=== PATIENT | female | born 1995 | race Two or more races ===

== ENCOUNTER 2024-07-11 10:20 | Emergency (ER) | payer OTHER ==
[~2024-07-11] VITALS: Ht 160 cm; Wt 61.7 kg
[~2024-07-11 10:20] MED LIST: DOLOGEN CAPLET1 TAB PO; SEPTRA DS TABLE1 TAB PO
[2024-07-11] MEDS ORDERED: 0.9 % SODIUM CHLORIDE 1,000 ML IV STA (11:02)
[2024-07-11] MEDS ORDERED: MORPHINE SULFATE 4 MG/ML VIAL IV STA (11:03)
[2024-07-11] MEDS ORDERED: HYOSCYAMINE SULFATE 0.125 MG TAB.SUBL SL ONE (11:15)
[2024-07-11 11:57] LABS: HEMATOCRIT 38.2 % (36.0-45.00); HEMOGLOBIN 12.8 g/dL (12.0-15.00); MEAN CELL VOLUME 87.3 fL (80.00-100.00); MEAN CORPUSCULAR HEMOGLOBIN 29.2 pg (27.00-32.0); MEAN CORPUSCULAR HGB CONC 33.4 g/dl (32.0-36.0); PLATELET COUNT 340 K/uL (150-450); RED BLOOD COUNT 4.37 M/uL (4.00-6.00); RED CELL DISTRIBUTION WIDTH 13.1 % (11.5-14.5)
[2024-07-11 12:25] LABS: ALBUMIN 3.7 gm/dL (3.4-5.0); BILIRUBIN TOTAL 0.35 mg/dL (0.3-1.2); CALCIUM 9.3 mg/dL (8.5-10.1); CREATININE SERUM 0.76 mg/dL (0.55-1.02); GFR 88.76; GLOBULINA 4.1 G/DL (2.4-3.5); POTASSIUM 4.53 mEq/L (3.5-5.1); TOTAL PROTEIN 7.8 gm/dL (6.4-8.2)
== END 2024-07-11 13:08 | disposition home or self-care (01) ==
LOC: ER 10:23
DX: R10.11 Right upper quadrant pain (principal); Z88.6 Allergy status to analgesic agent; Z88.8 Allergy status to other drugs, medicaments and biological substances; K59.01 Slow transit constipation